=== PATIENT | male | born 1970 | race Caucasian/White ===

== ENCOUNTER → 2019-04-06 09:52 | Outpatient (CLI) | payer BC, SELFPAY ==
[2019-04-06 10:49] LABS: Absolute Lymphocyte Count 1.64 X10^3/ul (0.83-4.51); Absolute Neutrophil Count 2.1 X10^3/uL (2.0-7.7); Basophil# 0.06 X10^3/uL; Basophil% 1.4 % (0-1); Eosinophil# 0.15 X10^3/uL; Eosinophils% 3.4 % (0-5); Hematocrit 43.6 % (40-54); Hemoglobin 14.7 g/dl (13.0-16.5); Lymphocyte # 1.64 X10^3/ul (4.0); Mean Corp Hgb Conc 33.7 g/gl (32-36); Mean Corpuscular Hgb 30.4 pg (27.0-32.0); Mean Corpuscular Volume 90.3 fL (80-94); Mean Platelet Vol. 10.1 fl (6.2-12.0); Monocyte# 0.44 X10^3/uL; Monocyte% 9.9 % (0-10); Neutrophil # 2.12 X10^3/uL (2.7-7.7); Neutrophil % 47.8 % (47-70); POSITIVE COUNT NO; POSITIVE DIFFERENTIAL NO; POSITIVE MORPHOLOGY NO; Platelet Count 157 K/mm3 (150-450); RBC Distribution Width SD 38.9 fl (35.1-43.9); Red Blood Count 4.83 M/mm3 (4.6-6.2); White Blood Count 4.4 K/mm3 (4.4-11.0)
[2019-04-06 11:14] LABS: Hemoglobin A1c 9.2 % (4.2-6.3)
[2019-04-06 11:15] LABS: ALB/GLOB Ratio 1.1 RATIO (0.9-2.4); AST(SGOT) 144 U/L (15-37); Alanine Aminotransfer ALT/SGPT 181 U/L (16-61); Albumin, Serum 3.5 g/dL (3.2-5.0); Alkaline Phosphatase 90 U/L (45-117); Anion Gap 6 (5-15); BUN 8 mg/dL (7-18); BUN/Creat Ratio 9.3 RATIO (10-20); Calcium,Total 8.2 mg/dL (8.5-10.1); Chloride 104 mmol/L (98-107); Cholesterol 201 mg/dL (200); Creatinine, Serum 0.86 mg/dL (0.70-1.30); EST Glomerular Filtration Rate 100 mL/min (>60); Est Glom Filt Rate - Afr Amer 121 mL/min (>60); Globulin 3.2 g/dL (2.2-4.2); Glucose 227 mg/dL (74-106); High Density Lipoprotein 33 mg/dL; PSA,Total - Annual Screen 0.57 ng/mL (0.00-4.00); Protein, Total 6.7 g/dL (6.4-8.2); Sodium Level 137 mmol/L (136-145); Triglycerides 797 mg/dL
== END ==
LOC: LAB.FUTURE 09:55
PROVIDERS: Family Provider Family Medicine; PCP Family Medicine; Referring Provider Family Medicine; Visit Provider Family Medicine
DX: Z00.00 Encounter for general adult medical examination without abnormal findings (principal); E11.9 Type 2 diabetes mellitus without complications; Z12.5 Encounter for screening for malignant neoplasm of prostate
CPT/HCPCS: 36415; 80053; 80061; 83036; 84153; 85025; G0103

== ENCOUNTER → 2020-05-26 | Outpatient (CLI) | payer BC, SELFPAY | END | disposition home or self-care (01) | LOC: MTDU 05-29 12:40 | PROVIDERS: PCP Family Medicine; Referring Provider Family Medicine; Visit Provider Family Medicine | DX: Z20.828 Contact with and (suspected) exposure to other viral communicable diseases (principal) | CPT/HCPCS: 87635; 94799; U0003 ==

== ENCOUNTER → 2021-03-27 10:22 | Outpatient (CLI) | payer BC, SELFPAY ==
[2021-03-27 11:28] LABS: AST(SGOT) 126 U/L (15-37); Alanine Aminotransfer ALT/SGPT 147 U/L (16-61); Albumin, Serum 3.5 g/dL (3.2-5.0); Alkaline Phosphatase 95 U/L (45-117); Anion Gap 6 (5-15); BUN 12 mg/dL (7-18); BUN/Creat Ratio 12.8 RATIO (10-20); Calcium,Total 8.5 mg/dL (8.5-10.1); Chloride 105 mmol/L (98-107); Cholesterol 194 mg/dL (200); Creatinine, Serum 0.94 mg/dL (0.70-1.30); EST Glomerular Filtration Rate 90 mL/min (>60); Est Glom Filt Rate - Afr Amer 109 mL/min (>60); Globulin 3.5 g/dL (2.2-4.2); Glucose 268 mg/dL (74-106); High Density Lipoprotein 40 mg/dL; Potassium 4.4 mmol/L (3.5-5.1); Sodium Level 140 mmol/L (136-145); Triglycerides 333 mg/dL; Very Low Density Lipoprotein 67 mg/dL (5-40)
[2021-03-27 11:31] LABS: Hemoglobin A1c 11.1 % (3.8-5.6)
== END ==
PROVIDERS: PCP Family Medicine; Referring Provider Family Medicine; Visit Provider Family Medicine
DX: Z00.00 Encounter for general adult medical examination without abnormal findings (principal); E11.9 Type 2 diabetes mellitus without complications
CPT/HCPCS: 36415; 80053; 80061; 83036

== ENCOUNTER → 2022-08-02 | Outpatient (CLI) | payer BC, SELFPAY ==
[2022-08-02 08:49] LABS: Absolute Lymphocyte Count 2.01 X10^3/uL (0.83-4.51); Absolute Neutrophil Count 2.4 X10^3/uL (2.0-7.7); Basophil# 0.06 X10^3/uL; Basophil% 1.1 % (0-1); Eosinophil# 0.15 X10^3/uL; Eosinophils% 2.9 % (0-5); Hematocrit 44.7 % (40-54); Hemoglobin 13.8 g/dL (13.0-16.5); Lymphocyte # 2.01 X10^3/ul (0.83-4.51); Lymphocyte % 38.4 % (19-41); Mean Corp Hgb Conc 30.9 g/dL (32-36); Mean Corpuscular Hgb 27.1 pg (27.0-32.0); Mean Corpuscular Volume 87.8 fL (80-94); Mean Platelet Vol. 10.3 fl (6.2-12.0); Monocyte# 0.61 X10^3/uL; Monocyte% 11.7 % (0-10); NRBC Flagged by Analyzer 0 % (0-5); Neutrophil # 2.37 X10^3/uL (2.7-7.7); Neutrophil % 45.3 % (47-70); Platelet Count 182 K/mm3 (150-450); RBC Distribution Width CV 15.9 % (11.6-14.6); RBC Distribution Width SD 51.6 fl (35.1-43.9); Red Blood Count 5.09 M/mm3 (4.6-6.2); White Blood Count 5.2 K/mm3 (4.4-11.0)
[2022-08-02 09:26] LABS: AST(SGOT) 83 U/L (15-37); Alanine Aminotransfer ALT/SGPT 115 U/L (16-61); Albumin, Serum 3.3 g/dL (3.2-5.0); Alkaline Phosphatase 86 U/L (45-117); Anion Gap 5 (5-15); BUN 16 mg/dL (7-18); BUN/Creat Ratio 16.2 RATIO (10-20); Calcium,Total 8.2 mg/dL (8.5-10.1); Chloride 103 mmol/L (98-107); Cholesterol 256 mg/dL (200); Creatinine, Serum 0.98 mg/dL (0.70-1.30); EST Glomerular Filtration Rate 84 mL/min (>60); Est Glom Filt Rate - Afr Amer 102 mL/min (>60); Globulin 3.4 g/dL (2.2-4.2); Glucose 189 mg/dL (74-106); High Density Lipoprotein 41 mg/dL; PSA,Total - Annual Screen 1.29 ng/mL (0.00-4.00); Potassium 3.8 mmol/L (3.5-5.1); Protein, Total 6.7 g/dL (6.4-8.2); Sodium Level 136 mmol/L (136-145); Triglycerides 1132 mg/dL
== END | disposition home or self-care (01) ==
LOC: LAB 08:12
PROVIDERS: PCP Family Medicine; Referring Provider Family Medicine; Visit Provider Family Medicine
DX: Z00.00 Encounter for general adult medical examination without abnormal findings (principal); E11.9 Type 2 diabetes mellitus without complications; Z12.5 Encounter for screening for malignant neoplasm of prostate
CPT/HCPCS: 36415; 80053; 80061; 84153; 85025; G0103

== ENCOUNTER 2022-09-24 15:44 | Emergency (ER) | payer BC, SELFPAY ==
[2022-09-24 15:45] VITALS: BP 142/80; PULSE 112; RESP 16; TEMP 35.8; O2SAT 97; BMI 30.8
--- NOTE | 2022-09-24 19:43 | EDS_ITS ---
HPI History of Present Illness Chief Complaint: Laceration Narrative Narrative: 52-year-old male presenting with laceration to the left palm. He states this happened just prior to arrival. He states he is right-hand dominant. Patient states that he fell and cut himself on a piece of glass. He states he does not think there is any foreign bodies and there. He pulled out 1 piece of glass which was intact. Patient is very sure of this. He has pain around his incision. No numbness or tingling. He is able to move his hand without debility. He states his tetanus is up-to-date. Denies any other injury. [facility] Medical History Diabetes Home Medications aspirin 81 mg tablet 81 mg PO DAILY 09/24/22 [History Last Taken Unknown] empagliflozin 25 mg tablet (Jardiance) 25 mg PO DAILY 09/24/22 [History Last Taken Unknown] glimepiride 4 mg tablet 4 mg PO BID 09/24/22 [History Last Taken Unknown] metformin 1,000 mg tablet 1,000 mg PO BID 09/24/22 [History Last Taken Unknown] pioglitazone 30 mg tablet 30 mg PO DAILY 09/24/22 [History Last Taken Unknown] simvastatin 20 mg tablet 20 mg PO QHS 09/24/22 [History Last Taken Unknown] Allergy/AdvReac Type Severity Reaction Status Date / Time poison angie extract Allergy Rash Verified 09/24/22 15:49 Social History Smoking Status: Former smoker ROS ROS ED Constitutional Constitutional ED: Denies chills, fever(s) or sweats Eyes Eyes: Denies blurry vision or change in vision ENT ENT ED: Denies ear pain or sore throat Cardiovascular Cardiovascular: Denies chest pain, palpitations or racing heartbeat Respiratory/Chest Respiratory/Chest: Denies cough, dyspnea or sputum Gastrointestinal Gastrointestinal: Denies abdominal pain, constipation, diarrhea, nausea or vomiting Genitourinary Genitourinary ED: Denies dysuria, hematuria or urinary frequency Musculoskeletal Musculoskeletal: Denies arthralgias, myalgias or neck pain Integumentary Denies abscess, Abrasions or rash Neurologic Neurologic: Denies headache(s), paresthesias or weakness Psychiatric Psychiatric: Denies anxiety, depression, suicidal ideation or suicidal thoughts Endocrine Endocrinology: Denies polydipsia or polyuria EXAM Physical Exam Const Vital Signs: 09/24/22 15:45 Temperature 96.4 F L Temperature Source Temporal Pulse Rate 112 H Respiratory Rate 16 Blood Pressure 142/80 H Blood Pressure Mean 100 Pulse Ox 97 Oxygen Delivery Method Room Air Positive well nourished and unkempt General Appearance ED: unkempt and NAD HEENT normocephalic and atraumatic Eyes PERRL and EOMs intact bilaterally Resp normal respiratory effort Cardio regular rate and regular rhythm Extremity Extremity Narrative: 4 cm linear laceration in the vertical lie on the left palm. No active bleeding. Margins not well approximated. Fat pad is exposed. No tendon in volvement. Patient's left hand is neurovascular intact brisk cap refill to all 5 fingers. No bony tenderness to the left hand or left wrist Neuro oriented x3 and CN's II-XII intact bilaterally Sensorium / Orientation: alert Psych mental status grossly normal Appearance: unkempt Skin General Skin Exam: petechiae MDM MDM MDM Narrative Medical decision making narrative: Patient presented with laceration to the left palm. She is not well approximated. I suspect that he has some tissue that was lost with the fall onto the glass bottle. No foreign bodies are appreciated. Does not appear to be any nerve or tendon damage. He does not have any bony tenderness. He states his tetanus immunization is up-to-date. Patient's wound was cleaned and he was anesthetized with 6 cc of lidocaine without epinephrine. Patient still complains that the lidocaine is not adequately helping his pain and he was reanesthetized with 2 more cc of lidocaine. At this point the patient just wants the sutures placed. 3 3?0 Nonabsorbable sutures were placed in the left palm. Again since he lost some tissue with a laceration they are not well approximated. I was able to mostly approximate the wound margins however patient stated he did not want any more sutures. I feel that his wound will heal adequately. I did remove some of the adipose tissue which was making it difficult to approximate the wound margins. Patient counseled on wound care and monitor for signs of infections. He is to follow-up outpatient and return to the ER for suture removal. Impression: 1. Mechanical fall 2. 4 cm hand laceration Lab Data Attestation: I reviewed the patient's lab results. Procedures Lacerations Left Palm: Length: 1.57 in Depth: Sub Q Shape: Linear Prep: Chlorhexadine Laceration repair: Irrigated, Lidocaine and Skin sutures (3) Irrigated (ml): 250 Number of Sutures/[place]: 3 Suture Information: [facility] Discharge Plan Triage Chief Complaint: Laceration ED Provider: Bi Wylie Dx/Rx/DC Orders Instructions: ED Laceration, Hand: All Closures Prescriptions: No Action simvastatin 20 mg tablet 20 mg PO QHS Label Comments: TAKE 1 TABLET EVERY EVENING metformin 1,000 mg tablet 1,000 mg PO BID Label Comments: TAKE 1 TABLET BY MOUTH TWICE DAILY glimepiride 4 mg tablet 4 mg PO BID Label Comments: Take 1 tablet by mouth twice a day aspirin 81 mg Tablet 81 mg PO DAILY pioglitazone 30 mg tablet 30 mg PO DAILY Label Comments: TAKE 1 TABLET BY MOUTH ONCE DAILY Jardiance 25 mg tablet 25 mg PO DAILY Label Comments: take 1 (ONE) tablet orally daily before the first meal OF the day Primary Care Provider: Farhan Navarro Referrals: Farhan Navarro DO [Primary Care Provider] - Disposition Disposition: Home, Self Care Discharge Date/Time: 09/24/22 21:56
[2022-09-24 21:53] VITALS: PULSE 87; RESP 20
[2022-09-24] MEDS: Lidocaine 1% (20 ml mdv) 20 ML Vial INFILT (21:55)
== END 2022-09-24 21:56 | disposition home or self-care (01) ==
PROVIDERS: Emergency Provider Student in an Organized Health Care Education/Training Program; PCP Family Medicine; Visit Provider Student in an Organized Health Care Education/Training Program
DX: S61.412A Laceration without foreign body of left hand, initial encounter (principal); E11.9 Type 2 diabetes mellitus without complications; Z79.82 Long term (current) use of aspirin; Z79.84 Long term (current) use of oral hypoglycemic drugs; Z87.891 Personal history of nicotine dependence; W25.XXXA Contact with sharp glass, initial encounter
CPT/HCPCS: 12002; 99283

== ENCOUNTER → 2024-05-01 | Outpatient (CLI) | payer BC, SELFPAY ==
[2024-05-01 07:53] LABS: Absolute Lymphocyte Count 1.97 X10^3/uL (0.83-4.51); Absolute Neutrophil Count 1.9 X10^3/uL (2.0-7.7); Basophil# 0.06 X10^3/uL; Basophil% 1.3 % (0-1); Eosinophil# 0.17 X10^3/uL; Eosinophils% 3.7 % (0-5); Hematocrit 48.3 % (40-54); Hemoglobin 15.5 g/dL (13.0-16.5); Lymphocyte # 1.97 X10^3/ul (0.83-4.51); Lymphocyte % 42.8 % (19-41); Mean Corp Hgb Conc 32.1 g/dL (32-36); Mean Corpuscular Hgb 31.6 pg (27.0-32.0); Mean Corpuscular Volume 98.6 fL (80-94); Monocyte# 0.47 X10^3/uL; Monocyte% 10.2 % (0-10); NRBC Flagged by Analyzer 0 % (0-5); Neutrophil # 1.89 X10^3/uL (2.7-7.7); Neutrophil % 41.1 % (47-70); Platelet Count 165 K/mm3 (150-450); RBC Distribution Width CV 11.9 % (11.6-14.6); White Blood Count 4.6 K/mm3 (4.4-11.0)
[2024-05-01 08:06] LABS: Hemoglobin A1c 8.2 % (3.8-5.6)
[2024-05-01 08:13] LABS: Vitamin B12 443 pg/mL (211-911)
[2024-05-01 08:36] LABS: ALB/GLOB Ratio 0.9 RATIO (0.9-2.4); AST(SGOT) 70 U/L (15-37); Alanine Aminotransfer ALT/SGPT 111 U/L (16-61); Albumin, Serum 3.4 g/dL (3.2-5.0); Alkaline Phosphatase 69 U/L (45-117); Anion Gap 8 (5-15); BUN 12 mg/dL (7-18); BUN/Creat Ratio 13.8 RATIO (10-20); Calcium,Total 8.9 mg/dL (8.5-10.1); Chloride 104 mmol/L (98-107); Cholesterol 218 mg/dL (200); Creatinine, Serum 0.87 mg/dL (0.70-1.30); EST Glomerular Filtration Rate 96 mL/min (>60); Est Glom Filt Rate - Afr Amer 117 mL/min (>60); Globulin 3.6 g/dL (2.2-4.2); Glucose 158 mg/dL (74-106); High Density Lipoprotein 48 mg/dL; PSA,Total - Annual Screen 1.26 ng/mL (0.00-4.00); Potassium 4.2 mmol/L (3.5-5.1); Sodium Level 139 mmol/L (136-145); Triglycerides 444 mg/dL
== END | disposition home or self-care (01) ==
PROVIDERS: PCP Family Medicine; Referring Provider Family Medicine; Visit Provider Family Medicine
DX: Z00.00 Encounter for general adult medical examination without abnormal findings (principal); E11.9 Type 2 diabetes mellitus without complications; I10 Essential (primary) hypertension; R41.3 Other amnesia; Z12.5 Encounter for screening for malignant neoplasm of prostate
CPT/HCPCS: 36415; 80053; 80061; 82607; 83036; 84153; 84443; 85025; G0103

== ENCOUNTER → 2025-06-27 | Outpatient (CLI) | payer BC, SELFPAY ==
--- OUTSIDE RECORDS SUMMARY | 2025-06-27 10:25 | XMS RPT_ITS | CCD ---
Author Organization [facility] Care Team Providers Care Conduit Worker Name Role Phone Farhan Navarro Attending Unavailable Farhan Navarro Primary Care Unavailable Farhan Navarro Referring Unavailable Farhan Navarro Attending Unavailable Farhan Navarro Primary Care Unavailable Allergies Allergy Classification Reported Allergen(s) Allergy Type Date of Onset Reaction(s) Facility (1 source) POISON DARIAN EXTRACT Drug Allergy 09-24-2022 Rash [facility] Work Phone: (1 source) poison darian extract Drug allergy (disorder) 09-24-2022 [facility] Repository Medications Current Medications Medication Drug Class(es) Dates Sig (Normalized) Sig (Original) aspirin 81 mg oral tablet (1 source) Platelet Aggregation Inhibitor, Nonsteroidal Anti-inflammatory Drug Start: 09-24-2022 take 81 mg by mouth once daily Aspirin Active 81 MG PO DAILY September 24, 2022 12:00am empagliflozin 25 mg oral tablet (1 source) Sodium-Glucose Cotransporter 2 Inhibitor Start: 09-24-2022 take 1 tablet by mouth once daily Empagliflozin (Jardiance) 25 mg tablet Active 25 MG PO DAILY September 24, 2022 12:00am glimepiride 4 mg oral tablet (1 source) Sulfonylurea Start: 09-24-2022 take 4 mg by mouth twice daily Glimepiride Active 4 MG PO TWICE A DAY September 24, 2022 12:00am metFORMIN hydrochloride 1000 mg oral tablet (1 source) Biguanide Start: 09-24-2022 take 1000 mg by mouth twice daily Metformin Active 1000 MG PO TWICE A DAY September 24, 2022 12:00am pioglitazone 30 mg oral tablet (1 source) Peroxisome Proliferator Receptor alpha Agonist, Peroxisome Proliferator Receptor gamma Agonist, Thiazolidinedione Start: 09-24-2022 take 30 mg by mouth once daily Pioglitazone Active 30 MG PO DAILY September 24, 2022 12:00am simvastatin 20 mg oral tablet (1 source) HMG-CoA Reductase Inhibitor Start: 09-24-2022 take 20 mg by mouth at bedtime Simvastatin Active 20 MG PO AT BEDTIME September 24, 2022 12:00am Results Test Name Value Interpretation Reference Range Facil ity CBC W/Diff, Automatedon 07-2 Absolute Lymph 1.97 X10 3/uL Normal 0.83-4.51 [facility] Comment on above: Performed By: #### L 503.0105, L501.9910, L501.9985, L502.0250, L500.4050, L501.9520, L500.4100, L100.0100 #### [facility] [address] [place], [address] Absolute Neut 1.9 X10 3/uL Low 2.0-7.7 [facility] Comment on above: Performed By: #### L 503.0105, L501.9910, L501.9985, L502.0250, L500.4050, L501.9520, L500.4100, L100.0100 #### [facility] [address] [place], [address] Basophils/100 WBC (Bld) 1.3 % High 0-1 [facility] Comment on above: Performed By: #### L 503.0105, L501.9910, L501.9985, L502.0250, L500.4050, L501.9520, L500.4100, L100.0100 #### [facility] [address] [place], [address] Eosinophils/100 WBC (Bld) 3.7 % Normal 0-5 [facility] Comment on above: Performed By: #### L 503.0105, L501.9910, L501.9985, L502.0250, L500.4050, L501.9520, L500.4100, L100.0100 #### [facility] [address] [place], [address] Erythrocyte distribution width (RBC) [Ratio] 11.9 % Normal 11.6-14.6 [facility] Comment on above: Performed By: #### L 503.0105, L501.9910, L501.9985, L502.0250, L500.4050, L501.9520, L500.4100, L100.0100 #### [facility] [address] [place], [address] Hematocrit (Bld) [Volume fraction] 48.3 % Normal 40-54 [facility] Comment on above: Performed By: #### L 503.0105, L501.9910, L501.9985, L502.0250, L500.4050, L501.9520, L500.4100, L100.0100 #### [facility] [address] [place], [address] Hemoglobin (Bld) [Mass/Vol] 15.5 g/dL Normal 13.0-16.5 [facility] Comment on above: Performed By: #### L 503.0105, L501.9910, L501.9985, L502.0250, L500.4050, L501.9520, L500.4100, L100.0100 #### [facility] [address], [address] IG% 0.900 Normal 0.0-0.9 [facility] Comment on above: Result Comment: IG% - Immature Granulocytes (promyelocytes, myelocytes and metamyelocytes) > 1% indicates that a LEFT SHIFT is Present. Performed By: #### L 503.0105, L501.9910, L501.9985, L502.0250, L500.4050, L501.9520, L500.4100, L100.0100 #### [facility] [address] [place], [address] Lymphocytes/100 WBC (Bld) 42.8 % High 19-41 [facility] Comment on above: Performed By: #### L 503.0105, L501.9910, L501.9985, L502.0250, L500.4050, L501.9520, L500.4100, L100.0100 #### [facility] [address] [place], [address] MCH (RBC) [Entitic mass] 31.6 pg Normal 27.0-32.0 [facility] Comment on above: Performed By: #### L 503.0105, L501.9910, L501.9985, L502.0250, L500.4050, L501.9520, L500.4100, L100.0100 #### [facility] [address] [facility] [place], [address] MCHC (RBC) [Mass/Vol] 32.1 g/dL Normal 32-36 [facility] Comment on above: Performed By: #### L 503.0105, L501.9910, L501.9985, L502.0250, L500.4050, L501.9520, L500.4100, L100.0100 #### [facility] [address] [place], [address] MCV (RBC) [Entitic vol] 98.6 fL High 80-94 [facility] Comment on above: Performed By: #### L 503.0105, L501.9910, L501.9985, L502.0250, L500.4050, L501.9520, L500.4100, L100.0100 #### [facility] [address] [place], [address] Monocytes/100 WBC (Bld) 10.2 % High 0-10 [facility] Comment on above: Performed By: #### L 503.0105, L501.9910, L501.9985, L502.0250, L500.4050, L501.9520, L500.4100, L100.0100 #### [facility] [address] [place], [address] Neutrophils/100 WBC (Bld) 41.1 % Low 47-70 [facility] Comment on above: Performed By: #### L 503.0105, L501.9910, L501.9985, L502.0250, L500.4050, L501.9520, L500.4100, L100.0100 #### [facility] [address] [place], [address] Nucleated RBC (Bld) [#/Vol] 0 10*3/uL Normal 0-5 [facility] Comment on above: Performed By: #### L 503.0105, L501.9910, L501.9985, L502.0250, L500.4050, L501.9520, L500.4100, L100.0100 #### [facility] [address] [place], [address] Platelet mean volume (Bld) [Entitic vol] 10.0 fL Normal 6.2-12.0 [facility] Comment on above: Performed By: #### L 503.0105, L501.9910, L501.9985, L502.0250, L500.4050, L501.9520, L500.4100, L100.0100 #### [facility] [address] [place], [address] Platelets (Bld) [#/Vol] 165 10*3/uL Normal 150-450 [facility] Comment on above: Performed By: #### L 503.0105, L501.9910, L501.9985, L502.0250, L500.4050, L501.9520, L500.4100, L100.0100 #### [facility] [address] [place], [address] RBC (Bld) [#/Vol] 4.90 10*6/uL Normal 4.6-6.2 [facility] Comment on above: Performed By: #### L 503.0105, L501.9910, L501.9985, L502.0250, L500.4050, L501.9520, L500.4100, L100.0100 #### [facility] [address] [place], [address] (046) RDW SD 43.0 fl Normal 35.1-43.9 [facility] Comment on above: Performed By: #### L 503.0105, L501.9910, L501.9985, L502.0250, L500.4050, L501.9520, L500.4100, L100.0100 #### [facility] [address] [place], [address] WBC (Bld) [#/Vol] 4.6 10*3/uL Normal 4.4-11.0 [facility] Comment on above: Performed By: #### L 503.0105, L501.9910, L501.9985, L502.0250, L500.4050, L501.9520, L500.4100, L100.0100 #### [facility] [address] [place], [address] Comprehensive Metabolic [facility] 05-01-2024 Albumin [Mass/Vol] 3.4 g/dL Normal 3.2-5.0 [facility] Comment on above: Performed By: #### L 503.0105, L501.9910, L501.9985, L502.0250, L500.4050, L501.9520, L500.4100, L100.0100 #### [facility] [address] [place], [address] Albumin/Globulin [Mass ratio] 0.9 {ratio} Normal 0.9-2.4 [facility] Comment on above: Performed By: #### L 503.0105, L501.9910, L501.9985, L502.0250, L500.4050, L501.9520, L500.4100, L100.0100 #### [facility] [address] [place], [address] ALK P 69 U/L Normal 45-117 [facility] Comment on above: Performed By: #### L 503.0105, L501.9910, L501.9985, L502.0250, L500.4050, L501.9520, L500.4100, L100.0100 #### [facility] [address] [place], [address] ALT [Catalytic activity/Vol] 111 U/L High 16-61 [facility] Comment on above: Performed By: #### L 503.0105, L501.9910, L501.9985, L502.0250, L500.4050, L501.9520, L500.4100, L100.0100 #### [facility] [address] [place], [address] AST [Catalytic activity/Vol] 70 U/L High 15-37 [facility] Comment on above: Performed By: #### L 503.0105, L501.9910, L501.9985, L502.0250, L500.4050, L501.9520, L500.4100, L100.0100 #### [facility] [address] [place], [address] Bilirubin [Mass/Vol] 0.40 mg/dL Normal 0.20-1.00 [facility] Comment on above: Result Comment: For patients on eltrombopag therapy, use of Dimension [place] TBIL is not recommended. Performed By: #### L 503.0105, L501.9910, L501.9985, L502.0250, L500.4050, L501.9520, L500.4100, L100.0100 #### [facility] [address] [place], [address] BUN/CRE 13.8 RATIO Normal 10-20 [facility] Comment on above: Performed By: #### L 503.0105, L501.9910, L501.9985, L502.0250, L500.4050, L501.9520, L500.4100, L100.0100 #### [facility] [address] [place], [address] CA,Total 8.9 mg/dL Normal 8.5-10.1 [facility] Comment on above: Performed By: #### L 503.0105, L501.9910, L501.9985, L502.0250, L500.4050, L501.9520, L500.4100, L100.0100 #### [facility] [address] [place], [address] Chloride [Moles/Vol] 104 mmol/L Normal 98-107 [facility] Comment on above: Performed By: #### L 503.0105, L501.9910, L501.9985, L502.0250, L500.4050, L501.9520, L500.4100, L100.0100 #### [facility] [address] [place], [address] CO2 [Moles/Vol] 27.0 mmol/L Normal 21.0-32.0 [facility] Comment on above: Performed By: #### L 503.0105, L501.9910, L501.9985, L502.0250, L500.4050, L501.9520, L500.4100, L100.0100 #### [facility] [address] [place], [address] Creatinine [Mass/Vol] 0.87 mg/dL Normal 0.70-1.30 [facility] Comment on above: Result Comment: The validity of the calculated GFR GFRAA in patients over 70 years has not been determined. Clinical correlation is essential. Performed By: #### L 503.0105, L501.9910, L501.9985, L502.0250, L500.4050, L501.9520, L500.4100, L100.0100 #### [facility] [address] [place], [place], [id number] ([phone] EST GFR - AA 117 mL/min Normal >60 [facility] Comment on above: Result Comment: Afri can [place]ian GFR Calc Performed By: #### L 503.0105, L501.9910, L501.9985, L502.0250, L500.4050, L501.9520, L500.4100, L100.0100 #### [facility] [address] [place], [place], [id number] (508) GAP 8 Normal 5-15 [facility] Comment on above: Performed By: #### L 503.0105, L501.9910, L501.9985, L502.0250, L500.4050, L501.9520, L500.4100, L100.0100 #### [facility] [address] [place], [place], [id number] (442 GFR/1.73 sq M.predicted among non-blacks MDRD (S/P/Bld) [Vol rate/Area] 96 mL/min/{1.73_m2} Normal >60 [facility] Comment on above: Result Comment: Non- GFR Calc Performed By: #### L 503.0105, L501.9910, L501.9985, L502.0250, L500.4050, L501.9520, L500.4100, L100.0100 #### [facility] [address] [place], [place], [id number] (872) Globulin (S) [Mass/Vol] 3.6 g/dL Normal 2.2-4.2 [facility] Comment on above: Performed By: #### L 503.0105, L501.9910, L501.9985, L502.0250, L500.4050, L501.9520, L500.4100, L100.0100 #### [facility] [address] [place], [address] Glucose [Mass/Vol] 158 mg/dL High 74-106 [facility] Comment on above: Result Comment: Fast ing Glucose result greater than or equal to 126 mg/dL suggests DIABETES MELLITUS per A.D.A. criteria. Performed By: #### L 503.0105, L501.9910, L501.9985, L502.0250, L500.4050, L501.9520, L500.4100, L100.0100 #### [facility] [address] [place], [address] Potassium [Moles/Vol] 4.2 mmol/L Normal 3.5-5.1 [facility] Comment on above: Performed By: #### L 503.0105, L501.9910, L501.9985, L502.0250, L500.4050, L501.9520, L500.4100, L100.0100 #### [facility] [address] [place], [address] Sodium [Moles/Vol] 139 mmol/L Normal 136-145 [facility] Comment on above: Performed By: #### L 503.0105, L501.9910, L501.9985, L502.0250, L500.4050, L501.9520, L500.4100, L100.0100 #### [facility] [address] [place], [address] T PROT 7.0 g/dL Normal 6.4-8.2 [facility] Comment on above: Performed By: #### L 503.0105, L501.9910, L501.9985, L502.0250, L500.4050, L501.9520, L500.4100, L100.0100 #### [facility] [address] [place], [place], [id number] (045) Urea nitrogen [Mass/Vol] 12 mg/dL Normal 7-18 [facility] Comment on above: Performed By: #### L 503.0105, L501.9910, L501.9985, L502.0250, L500.4050, L501.9520, L500.4100, L100.0100 #### [facility] [address] [place], [place], [phone] (425) Hemoglobin A1con 05-01-2024 HbA1c (Bld) [Mass fraction] 8.2 % High 3.8-5.6 [facility] Comment on above: Result Comment: Norm al < 5.7 % Prediabetic 5.7 - 6.4 % Diabetic >or= 6.5 % Please note range changes. Performed By: #### L 503.0105, L501.9910, L501.9985, L502.0250, L500.4050, L501.9520, L500.4100, L100.0100 #### [facility] [address] [place], [place], [phone] (418) Lipid Profileon 05-01-2024 Cholesterol [Mass/Vol] 218 mg/dL High 200 [facility] Comment on above: Result Comment: <200 mg/dL Desirable 200-240 mg/dL Borderline >240 mg/dL High Risk Performed By: #### L 503.0105, L501.9910, L501.9985, L502.0250, L500.4050, L501.9520, L500.4100, L100.0100 #### [facility] [address] [place], [place], [phone] (510) Cholesterol in HDL [Mass/Vol] 48 mg/dL Normal [facility] Comment on above: Result Comment: The drugs N-Acetylcysteine and Metamizole may falsely depress this assay. Reference Range HDL <40 mg/dL Low HDL Cholesterol HDL >or= 60 mg/dL High HDL Cholesterol Performed By: #### L 503.0105, L501.9910, L501.9985, L502.0250, L500.4050, L501.9520, L500.4100, L100.0100 #### [facility] [address] [place], [place], [id number] (692) LDL TNP Normal 0-130 [facility] Comment on above: Performed By: #### L 503.0105, L501.9910, L501.9985, L502.0250, L500.4050, L501.9520, L500.4100, L100.0100 #### [facility] [address] [place], [place], [phone] (216) Triglyceride [Mass/Vol] 444 mg/dL High [facility] Comment on above: Result Comment: The drugs N-Acetylcysteine and Metamizole may falsely depress this assay. TRIGLYCERIDE IS GREATER THAN 400 mg/dL. LDL RESULT IS INVALID AND WILL NOT BE REPORTED. Serum Triglycerides Reference Interval Normal <150 mg/dL Borderline high 150 - 199 mg/dL High 200 - 499 mg/dL Very High > or = 500 mg/dL Performed By: #### L 503.0105, L501.9910, L501.9985, L502.0250, L500.4050, L501.9520, L500.4100, L100.0100 #### [facility] [address] [place], [place], [phone] (658) VLDL TNP Normal 5-40 [facility] Comment on above: Performed By: #### L 503.0105, L501.9910, L501.9985, L502.0250, L500.4050, L501.9520, L500.4100, L100.0100 #### [facility] [address] [place], [place], [phone] (810) Microalb:Creat Ratio,Random URon 07-24-2024 MALB:CRE Normal <30 mg/g CRE [facility] Comment on above: Result Comment: PER PT-UTO WILL LEAVE SAMPLE W/ DR OFFICE Performed By: #### L 503.0105, L501.9910, L501.9985, L502.0250, L500.4050, L501.9520, L500.4100, L100.0100 #### [facility] [address] [place], [address] MICROALBUMIN,UR Normal NO RANGE EST. [facility] Comment on above: Result Comment: PER PT-UTO WILL LEAVE SAMPLE W/ DR OFFICE Performed By: #### L 503.0105, L501.9910, L501.9985, L502.0250, L500.4050, L501.9520, L500.4100, L100.0100 #### [facility] [address] [place], [place], [phone] (446) UR CREAT Normal NO RANGE EST. [facility] Comment on above: Result Comment: PER PT-UTO WILL LEAVE SAMPLE W/ DR OFFICE Performed By: #### L 503.0105, L501.9910, L501.9985, L502.0250, L500.4050, L501.9520, L500.4100, L100.0100 #### [facility] [address] [place], [place], [id number] PSA,Total - Annual Screenon 05-01-2024 PSA,TOT SCREEN 1.26 ng/mL Normal 0.00-4.00 [facility] Comment on above: Result Comment: This test was performed using the TPSA assay method for the [employer] system. Values obtained with different assay methods cannot be used interchangably. When changing PSA assays in the course of monitoring a patient, additional sequential testing should be carried out to confirm baseline values. Performed By: #### L 503.0105, L501.9910, L501.9985, L502.0250, L500.4050, L501.9520, L500.4100, L100.0100 #### [facility] [address] [facility] [place], [address] Thyroid Stim Hormone (TSH)on 05-01-2024 TSH 3.60 uIU/mL Normal 0.358-3.74 [facility] Comment on above: Performed By: #### L 503.0105, L501.9910, L501.9985, L502.0250, L500.4050, L501.9520, L500.4100, L100.0100 #### [facility] [address] [place], [address] Vitamin B12on 05-01-2024 Cobalamin (Vitamin B12) [Mass/Vol] 443 pg/mL Normal 211-911 [facility] Comment on above: Performed By: #### L 503.0105, L501.9910, L501.9985, L502.0250, L500.4050, L501.9520, L500.4100, L100.0100 #### [facility] [address] [facility] [place], [address] Absolute lymphocyte counton 08-02-2022 Lymphocytes Auto (Unsp spec) [#/Vol] 2.01 10*3/uL 0.83-4.51 [facility] Work Phone: Basophil percentageon 2021 Basophils/100 WBC (Bld) 1.1 % 0-1 [facility] Work Phone: Bilirubin [Mass/Vol] 0.30 mg/dL 0.20-1.00 [facility] Work Phone: Comment on above: For patients on eltr ombopag therapy, use of Dimension [place] TBIL is not recommended. Chloride [Moles/Vol] 103 mmol/L 98-107 [facility] Work Phone: Cholesterol [Mass/Vol] 256 mg/dL <200 [facility] Work Phone: Comment on above: <200 mg/dL Desirable 200-240 mg/dL Borderline >240 mg/dL High Risk Eosinophils/100 WBC (Bld) 2.9 % 0-5 [facility] Work Phone: Glucose [Mass/Vol] 189 mg/dL 74-106 [facility] Work Phone: Comment on above: Fasting Glucose resu lt greater than or equal to 126 mg/dL suggests DIABETES MELLITUS per A.D.A. criteria. Neutrophils (Bld) [#/Vol] 2.4 10*3/uL 2.0-7.7 [facility] Work Phone: Neutrophils/100 WBC (Bld) 45.3 % 47-70 [facility] Work Phone: Potassium [Moles/Vol] 3.8 mmol/L 3.5-5.1 [facility] Work Phone: Protein [Mass/Vol] 6.7 g/dL 6.4-8.2 [facility] Work Phone: Sodium [Moles/Vol] 136 mmol/L 136-145 [facility] Work Phone: Triglyceride [Mass/Vol] 1132 mg/dL <199 [facility] Work Phone: Comment on above: The drugs N-Acetylcy steine and Metamizole may falsely depress this assay. Serum Triglycerides Reference Interval Normal <150 mg/dL Borderline high 150 - 199 mg/dL High 200 - 499 mg/dL Very High > or = 500 mg/dL WBC (Bld) [#/Vol] 5.2 10*3/uL 4.4-11.0 [facility] Work Phone: Blood erythrocytes count (nu mber/volume)on 08-02-2022 RBC (Bld) [#/Vol] 5.09 10*6/uL 4.6-6.2 [facility] Work Phone: Blood hemoglobin measurement (mass/volume)on 08-02-2022 Hemoglobin (Bld) [Mass/Vol] 13.8 g/dL 13.0-16.5 [facility] Work Phone: Blood lymphocytes/100 leukoc yteson 08-02-2022 Lymphocytes/100 WBC (Bld) 38.4 % 19-41 [facility] Work Phone: Blood monocytes/100 leukocyt eson 08-02-2022 Monocytes/100 WBC (Bld) 11.7 % 0-10 [facility] Work Phone: Blood platelet mean volumeon 08-02-2022 Platelet mean volume (Bld) [Entitic vol] 10.3 fL 6.2-12.0 [facility] Work Phone: Determination of erythrocyte mean corpuscular volume (MCV)on 08-02-2022 MCV (RBC) [Entitic vol] 87.8 fL 80-94 [facility] Work Phone: Hematocrit Auto (Bld) [Volum e fraction]on 08-02-2022 Hematocrit (Bld) [Volume fraction] 44.7 % 40-54 [facility] Work Phone: Laboratory - Chemistry and C hemistry - challengeon 08-02-2022 ALP [Catalytic activity/Vol] 86 U/L 45-117 [facility] Work Phone: ALT [Catalytic activity/Vol] 115 U/L 16-61 [facility] Work Phone: CO2 [Moles/Vol] 28.0 mmol/L 21.0-32.0 [facility] Work Phone: Globulin (S) [Mass/Vol] 3.4 g/dL 2.2-4.2 [facility] Work Phone: Urea nitrogen/Creatinine [Mass ratio] 16.2 mg/mg 10-20 [facility] Work Phone: Laboratory - Hematology and Cell countson 08-02-2022 Erythrocyte distribution width (RBC) [Entitic vol] 51.6 fL 35.1-43.9 [facility] Work Phone: Erythrocyte distribution width (RBC) [Ratio] 15.9 % 11.6-14.6 [facility] Work Phone: Immature granulocytes/100 WBC (Bld) 0.600 % 0.0-0.9 [facility] Work Phone: Comment on above: IG% - Immature Granu locytes (promyelocytes, myelocytes and metamyelocytes) > 1% indicates that a LEFT SHIFT is Present. MCH (RBC) [Entitic mass] 27.1 pg 27.0-32.0 [facility] Work Phone: Nucleated RBC/100 WBC (Bld) [Ratio] 0 % 0-5 [facility] Work Phone: MCHC Auto (RBC) [Mass/Vol]on 08-02-2022 MCHC (RBC) [Mass/Vol] 30.9 g/dL 32-36 [facility] Work Phone: No Panel Informationon 08-02 Estimated GFR (MDRD) Amer 102 mL/min >60 [facility] Work Phone: Comment on above: GFR Calc Estimated GFR (MDRD) Non-Af Amer 84 mL/min >60 [facility] Work Phone: Comment on above: Non- GFR Calc Prostate Specific Antigen Screen 1.29 ng/mL 0.00-4.00 [facility] Work Phone: Comment on above: This test was perfor med using the TPSA assay method [facility] the[facility]. Values obtained with differentassay methods cannot be used interchangably.When changing PSA assays in the course of monitoring apatient, additional sequential testing should be carriedout to confirm baseline values. Platelets bldon 08-02-2022 Platelets (Bld) [#/Vol] 182 10*3/uL 150-450 [facility] Work Phone: Serum or plasma albumin khadijah urement (mass/volume)on 08-02-2022 Albumin [Mass/Vol] 3.3 g/dL 3.2-5.0 [facility] Work Phone: Serum or plasma albumin/glob ulin mass ratioon 08-02-2022 Albumin/Globulin [Mass ratio] 1.0 {ratio} 0.9-2.4 [facility] Work Phone: Serum or plasma calcium khadijah urement (mass/volume)on 08-02-2022 Calcium [Mass/Vol] 8.2 mg/dL 8.5-10.1 [facility] Work Phone: Serum or plasma cholesterol in HDL measurement (mass/volume)on 08-02-2022 Cholesterol in HDL [Mass/Vol] 41 mg/dL >40 [facility] Work Phone: Comment on above: The drugs N-Acetylcy steine and Metamizole may falsely depress this assay. Reference Range HDL <40 mg/dL Low HDL Cholesterol HDL >or= 60 mg/dL High HDL Cholesterol Serum or plasma cholesterol in VLDL measurement (mass/volume)on 08-02-2022 Cholesterol in VLDL [Mass/Vol] [facility] Work Phone: Comment on above: Test not performed Serum or plasma creatinine m easurement (mass/volume)on 08-02-2022 Creatinine [Mass/Vol] 0.98 mg/dL 0.70-1.30 [facility] Work Phone: Comment on above: The validity of the calculated GFR & GFRAA in patients over 70 years has not been determined. Clinical correlation is essential. Serum or plasma low density lipoprotein (LDL) cholesterol measurement (mass/volume)on 08-02-2022 Cholesterol in LDL [Mass/Vol] [facility]: Comment on above: Test not performed Serum or plasma urea nitroge n measurement (mass/volume)on 08-02-2022 Urea nitrogen [Mass/Vol] 16 mg/dL 7-18 [facility] Work Phone: Thin prep Papanicolaou smear with manual screeningon 08-02-2022 Thin prep Papanicolaou smear with manual screening 83 U/L 15-37 [facility] Work Phone: Thin prep Papanicolaou smear with manual screening 5 5-15 [facility] Work Phone: Vital Signs Date Time Vital Sign Value Performing Clinician All montemayor 09-24-2022 21:53-0500 Heart rate 87 /min [facility] Work Phone: 09-24-2022 21:53-0500 Respiratory rate 20 /min [facility] Work Phone: 09-24-2022 15:45-0500 Body height 187.96 cm [facility] Work Phone: 09-24-2022 15:45-0500 Body mass index (BMI) [Ratio] 30.8 kg/m2 [facility] Work Phone: 09-24-2022 15:45-0500 Body temperature 96.4 [degF] [facility] Work Phone: 09-24-2022 15:45-0500 Body weight 108.86 kg [facility] Work Phone: 09-24-2022 15:45-0500 Diastolic blood pressure 80 mm[Hg] [facility] Work Phone: 09-24-2022 15:45-0500 SaO2% (BldA) [Mass fraction] 97 % [facility] Work Phone: 09-24-2022 15:45-0500 Systolic blood pressure 142 mm[Hg] [facility] Work Phone: Encounters Encounter Date Encounter Type Care Provider Facility Start: 05-17-2024 Encounter for genera l adult medical examination without abnormal findings [facility] Start: 05-02-2024 ambulatory [facility] Facility: [facility] Start: 05-01-2024 End: 05-01-2024 ambulatory [facility] Facility:[facility] Start: 09-24-2022 End: 09-24-2022 Emergency department patient visit [facility] Start: 08-02-2022 End: 08-02-2022 [facility] Work Phone: Start: 08-02-2022 End: 08-02-2022 Patient encounter procedure [facility] Plan of Treatment Date Care Activity Detail Author Patient Education ED Laceration, Hand: Al l Closures [facility] Work Phone: Patient referral [facility] Work Phone: Payers Date Payer Category Payer Self-pay [id number] 2023 Unknown [id number] Unknown ANTHEM [id number] Unknown [id number] Unknown [id number] Social History Date Type Detail Facility Tobacco smoking stat [facility] Unknown if ever smoked [facility] Work Phone: Start: 1970 Sex Assigned At Male [facility] Work Phone: Start: 09-24-2022 Tobacco smoking stat [facility] Unknown if ever smoked [facility] Work Phone: Evaluation note Note Date & Type Note Facility Evaluation note No assessment information availa ble [facility] Work Phone: Chief Complaint and Reason for Visit Chief Complaint LACERATION Advance Directives No Advanced Directives Records Found Advance Directive Response Recorded Date/ Time Living Will No September 24 6:33pm Power of Slag Wheeler No September 24, 2022 6:33pm Summary Purpose Family History No Family History Records Found Additional Source Comments Goals (unrecognized section and content) Goals may be documented in a n alternate sectionGoals may be documented in an alternate section (unrecognized sect ion and content) No Status Records Found INFORMATION SOURCE (unrecogn ized section and content) DATE CREATED AUTHOR 05/19/2024 [facility] FOR RECORDS PERTAINING TO PATIENTS WHO ARE OR HAVE BEEN ENROLLED IN A CHEMICAL DEPENDENCY/SUBSTANCEABUSE PROGRAM, SOME INFORMATION MAY BE OMITTED. This clinical summary was aggregated from multiple sources. Caution should be exercised in using it in the provision of clinical care. This summary normalizes information from multiple sources, and as a consequence, information in this document may materially change the coding, format and clinical context of patient data. In addition, data may be omitted in some cases. CLINICAL DECISIONS SHOULD BE BASED ON THE PRIMARY CLINICAL RECORDS. [facility]. provides no warranty or guarantee of the accuracy or completeness of information in this document.
[2025-06-27 12:48] LABS: Hematocrit 46.9 % (40-54); Hemoglobin 15.0 g/dL (13.0-16.5); Immature Granulocytes Count 0.030 X10^3/uL (0.0-0.0); Mean Corp Hgb Conc 32.0 g/dL (32-36); Mean Corpuscular Volume 98.5 fL (80-94); Mean Platelet Vol. 9.8 fl (6.2-12.0); NRBC Flagged by Analyzer 0 % (0-5); Platelet Count 171 K/mm3 (150-450); RBC Distribution Width CV 12.5 % (11.6-14.6); RBC Distribution Width SD 45.0 fl (35.1-43.9); Red Blood Count 4.76 M/mm3 (4.6-6.2); White Blood Count 5.0 K/mm3 (4.4-11.0)
[2025-06-27 13:06] LABS: Cholesterol 239 mg/dL (<=200); Low Density Lipoprotein Calc. 101 mg/dL; Triglycerides 420 mg/dL; Very Low Density Lipoprotein 84 mg/dL (5-40); cholesterol:hdl ratio screen 4.45
[2025-06-27 13:08] LABS: Creatinine, Urine (random) 57.80 mg/dL (39.00-259.00); Microalbumin,Random Urine < 12.0 mg/L (<20 mg/L)
[2025-06-27 13:16] LABS: AST(SGOT) 50 U/L (<=37); Alanine Aminotransfer ALT/SGPT 69 U/L (<=46); Albumin, Serum 4.2 g/dL (3.5-5.0); Alkaline Phosphatase 75 U/L (40-129); Anion Gap 13 (5-15); BUN 15 mg/dL (4-19); BUN/Creat Ratio 17.3 RATIO (10-20); Calcium,Total 9.4 mg/dL (7.6-11.0); Carbon Dioxide 24.1 mmol/L (21.0-32.0); Chloride 103 mmol/L (98-108); Globulin 2.6 g/dL (2.2-4.2); Glucose 177 mg/dL (70-99); Potassium 4.7 mmol/L (3.3-5.1)
== END | disposition home or self-care (01) ==
LOC: BFHLAB 09:56
PROVIDERS: PCP Family Medicine; Visit Provider Family Medicine
DX: Z00.00 Encounter for general adult medical examination without abnormal findings (principal); E11.9 Type 2 diabetes mellitus without complications
CPT/HCPCS: 36415; 80053; 80061; 82043; 82570; 83036; 85025